=== PATIENT | male | born 1980 | race Caucasian/White ===

== ENCOUNTER 2023-02-02 11:02 | Emergency (ER) | payer MEDICAID ==
[~2023-02-02] VITALS: Ht 172.7 cm; Wt 101.0 kg
[2023-02-02 11:28] VITALS: BP 189/128; PULSE 78; RESP 16; TEMP 98.4; O2SAT 99
[2023-02-02] MEDS ORDERED: NEOM10DR11 RIGHT EAR (14:27)
[2023-02-02] MEDS ORDERED: NEOMYCIN-POLYMYXIN-HYDROCORTISONE 1% OTIC SUSP 10ML RIGHT EAR SCH (18:00)
== END 2023-02-02 14:53 | disposition home or self-care (01) ==
LOC: ER 11:02
DX: H60.91 Unspecified otitis externa, right ear (principal)
CPT/HCPCS: 99283